=== PATIENT | female | born 1950 | race Caucasian/White ===

== ENCOUNTER 2024-02-22 22:01 | Inpatient (IN) | payer OTHER ==
[2024-02-22] MEDS ORDERED: ACETAMINOPHEN INJECTION 100 ML ONE (22:36)
[2024-02-22] MEDS ORDERED: ONDANSETRON 4 MG/2 ML VIAL ONE (22:36)
[2024-02-22] MEDS ORDERED: ALBUTEROL SO4 2.5/IPRATROPIUM 0.5 INH SOL 3 ML VIAL.NEB. NEB ONE (22:36)
[2024-02-22] MEDS: LACTATED RINGERS SOLUTION 1000 ML INFUS.BAG IV ONE (22:52)
[2024-02-22] MEDS: ACETAMINOPHEN 1000 MG/100 ML BAG IVPB ONE (22:52)
[2024-02-22] MEDS: ONDANSETRON 4 MG/2 ML VIAL IVPUSH ONE (22:52)
[2024-02-22] MEDS: ALBUTEROL SO4 2.5/IPRATROPIUM 0.5 INH SOL 3 ML VIAL.NEB. NEB ONE (22:52)
[2024-02-22 22:54] LABS: HEMATOCRIT 37.7 % (32.4-45.2); HEMOGLOBIN 12.7 GM/dL (10.7-15.3); MCH 31.3 pg (25.7-33.7); MCHC 33.7 g/dl (32.0-36.0); MEAN CELL VOLUME 92.8 fl (80-96); MEAN PLT VOLUME 7.1 fl (7.5-11.1); PLATELET COUNT 253 10^3/uL (134-434); RBC 4.07 M/mm3 (3.60-5.2); RDW 13.3 % (11.6-15.6); WHITE BLOOD COUNT 20.6 K/mm3 (4.0-10.0)
[2024-02-22 23:13] LABS: POTASSIUM 3.7 mmol/L (3.5-5.1)
[2024-02-22 23:15] LABS: CALCIUM 8.9 mg/dL (8.5-10.1)
[2024-02-22 23:16] LABS: ALBUMIN 3.4 g/dl (3.4-5.0); BLOOD UREA NITROGEN 14.7 mg/dL (7-18); MAGNESIUM 2.1 mg/dL (1.8-2.4)
[2024-02-22 23:19] LABS: CREATININE 0.7 mg/dL (0.55-1.3)
[2024-02-22 23:20] LABS: BILIRUBIN,TOTAL 0.6 mg/dL (0.2-1)
[2024-02-22 23:21] LABS: TOT PROT 6.8 g/dl (6.4-8.2)
[2024-02-22 23:40] LABS: ANISOCYTOSIS 0; MACROCYTOSIS 0
[2024-02-23] MEDS: SODIUM CHLORIDE 500 ML IV STA (03:31)
[2024-02-23] MEDS: methylPREDNISolone NA SUCC 40 MG/1 ML VIAL IVPUSH SCH ×2 (03:34→10:02)
[2024-02-23 06:23] LABS: URINE APPEARANCE CLEAR
[2024-02-23 06:27] VITALS: BMI 19.1
[2024-02-23 06:45] LABS: PH,URINE 5.5 (5.0-8.0); URINE BILIRUBIN NEGATIVE (NEGATIVE); URINE COLOR YELLOW; URINE GLUCOSE (UA) 1+ (NEGATIVE); URINE KETONE 1+ (NEGATIVE); URINE LEUK ESTERASE 1+ (NEGATIVE); URINE NITRITE POSITIVE (NEGATIVE); URINE PROTEIN TRACE (NEGATIVE); URINE UROBILINOGEN 0.2 mg/dL (0.2-1.0)
[2024-02-23] MEDS: ALBUTEROL SO4 2.5/IPRATROPIUM 0.5 INH SOL 3 ML VIAL.NEB. NEB SCH (07:20)
[2024-02-23 08:41] LABS: EPI CELLS 13 /uL (0-25.1); HYALINE CASTS 0 /uL (0-3.1); URINE BACTERIA 28718 /uL (0-1359); URINE RBC 18 /uL (0-23.9); URINE WBC 47 /uL (0-25.8)
[2024-02-23 09:52] LABS: HEMATOCRIT 35.4 % (32.4-45.2); HEMOGLOBIN 11.9 GM/dL (10.7-15.3); MCH 31.7 pg (25.7-33.7); MCHC 33.5 g/dl (32.0-36.0); MEAN CELL VOLUME 94.5 fl (80-96); MEAN PLT VOLUME 7.5 fl (7.5-11.1); PLATELET COUNT 223 10^3/uL (134-434); RBC 3.75 M/mm3 (3.60-5.2); RDW 13.2 % (11.6-15.6); WHITE BLOOD COUNT 12.6 K/mm3 (4.0-10.0)
[2024-02-23] MEDS: ENOXAPARIN NA (PORCINE) 40 MG/0.4 ML DISP.SYRIN SQ SCH (10:01)
[2024-02-23 10:02] LABS: CALCIUM 8.6 mg/dL (8.5-10.1)
[2024-02-23 10:03] LABS: BLOOD UREA NITROGEN 11.1 mg/dL (7-18); MAGNESIUM 2.1 mg/dL (1.8-2.4)
[2024-02-23 10:05] LABS: CREATININE 0.7 mg/dL (0.55-1.3)
[2024-02-23 10:06] LABS: PHOSPHOROUS 1.8 mg/dL (2.5-4.9)
[2024-02-23 10:07] LABS: BILIRUBIN,TOTAL 0.4 mg/dL (0.2-1); TOT PROT 6.2 g/dl (6.4-8.2)
[2024-02-23 10:56] LABS: ANISOCYTOSIS 0; HELMET CELLS 0; HOWELL-JOLLY BODIES 0; MACROCYTOSIS 0; OVALOCYTE 0; ROULEAU 0; SICKELED CELLS 0; TARGET CELLS 0; TEAR DROP CELLS 0; TOXIC GRANULATION 0
[2024-02-23] MEDS: MONTELUKAST NA 10 MG TABLET PO SCH (21:13)
[2024-02-23] MEDS: ZOLPIDEM TARTRATE 5 MG TABLET PO SCH (21:13)
[2024-02-24] MEDS: BENZOCAINE/MENTH/CETYLPYRD CL 1 EACH LOZENGE MM PRN (01:55)
[2024-02-24 08:56] LABS: BASO % 0.1 % (0-2.0); HEMATOCRIT 35.8 % (32.4-45.2); LYMPH % 10.5 % (8-40); MCH 31.8 pg (25.7-33.7); MCHC 33.6 g/dl (32.0-36.0); MEAN CELL VOLUME 94.8 fl (80-96); MEAN PLT VOLUME 7.9 fl (7.5-11.1); MONO % 6.7 % (3.8-10.2); NEUT % 82.7 % (42.8-82.8); PLATELET COUNT 282 10^3/uL (134-434); RBC 3.78 M/mm3 (3.60-5.2); WHITE BLOOD COUNT 12.1 K/mm3 (4.0-10.0)
[2024-02-24 09:00] LABS: POTASSIUM 4.5 mmol/L (3.5-5.1)
[2024-02-24 09:03] LABS: ALBUMIN 3.2 g/dl (3.4-5.0); CALCIUM 9.3 mg/dL (8.5-10.1); MAGNESIUM 2.4 mg/dL (1.8-2.4)
[2024-02-24 09:06] LABS: CREATININE 0.7 mg/dL (0.55-1.3)
[2024-02-24 09:07] LABS: PHOSPHOROUS 2.6 mg/dL (2.5-4.9)
[2024-02-24 09:08] LABS: BILIRUBIN,TOTAL 0.2 mg/dL (0.2-1); TOT PROT 6.8 g/dl (6.4-8.2)
[2024-02-24] MEDS ORDERED: MAG HYDROX/AL HYDROX/SIMETH 30 ML UNIT-DOSE CUP PO PRN (12:22)
[2024-02-24] MEDS: PANTOPRAZOLE 40 MG TABLET PO SCH (12:46)
[2024-02-25] MEDS: ZOLPIDEM TARTRATE 5 MG TABLET PO PRN (02:07)
[2024-02-25] MEDS: MELATONIN 5 MG TABLETS PO ONE (04:22)
[2024-02-25 09:49] LABS: BASO % 0.1 % (0-2.0); HEMATOCRIT 35.6 % (32.4-45.2); LYMPH % 10.6 % (8-40); MCH 31.8 pg (25.7-33.7); MCHC 33.6 g/dl (32.0-36.0); MEAN CELL VOLUME 94.6 fl (80-96); MEAN PLT VOLUME 7.9 fl (7.5-11.1); MONO % 11.5 % (3.8-10.2); NEUT % 77.8 % (42.8-82.8); PLATELET COUNT 292 10^3/uL (134-434); RBC 3.77 M/mm3 (3.60-5.2); RDW 13.2 % (11.6-15.6); WHITE BLOOD COUNT 8.9 K/mm3 (4.0-10.0)
[2024-02-25 10:14] LABS: POTASSIUM 3.9 mmol/L (3.5-5.1)
[2024-02-25 10:16] LABS: ALBUMIN 3.3 g/dl (3.4-5.0); BLOOD UREA NITROGEN 13.1 mg/dL (7-18); CALCIUM 9.2 mg/dL (8.5-10.1)
[2024-02-25 10:20] LABS: CREATININE 0.7 mg/dL (0.55-1.3)
[2024-02-25 10:21] LABS: BILIRUBIN,TOTAL 0.3 mg/dL (0.2-1); TOT PROT 6.5 g/dl (6.4-8.2)
[2024-02-26 10:02] VITALS: RESP 18
[2024-02-26 15:46] LABS: INR 1.15 (0.83-1.09); PROTHROMBIN TIME (PATIENT) 12.9 SEC (9.7-13.0)
[2024-02-26 15:52] LABS: POTASSIUM 3.6 mmol/L (3.5-5.1)
[2024-02-26 15:56] LABS: BLOOD UREA NITROGEN 11.8 mg/dL (7-18)
[2024-02-26 16:00] LABS: BILIRUBIN,TOTAL 0.2 mg/dL (0.2-1); CREATININE 0.8 mg/dL (0.55-1.3)
[2024-02-26 16:01] LABS: TOT PROT 6.2 g/dl (6.4-8.2)
[2024-02-26 16:15] LABS: BASO % 0.1 % (0-2.0); EOS % 0.2 % (0-4.5); HEMATOCRIT 35.8 % (32.4-45.2); LYMPH % 25.9 % (8-40); MCH 31.5 pg (25.7-33.7); MCHC 33.5 g/dl (32.0-36.0); MEAN PLT VOLUME 7.8 fl (7.5-11.1); MONO % 16.2 % (3.8-10.2); NEUT % 57.6 % (42.8-82.8); PLATELET COUNT 351 10^3/uL (134-434); RBC 3.81 M/mm3 (3.60-5.2); RDW 13.4 % (11.6-15.6)
[2024-02-27] MEDS: methylPREDNISolone NA SUCC 40 MG/1 ML VIAL IVPUSH ONE (00:19)
[2024-02-27] MEDS: predniSONE 20 MG TABLET (UD) PO SCH (09:26)
[2024-02-27] MEDS ORDERED: methylPREDNISolone NA SUCC 40 MG/1 ML VIAL IVPUSH SCH (10:00)
[2024-02-27 10:40] LABS: INR 1.04 (0.83-1.09)
[2024-02-27 10:44] LABS: POTASSIUM 4.3 mmol/L (3.5-5.1)
[2024-02-27 10:46] LABS: BASO % 0.1 % (0-2.0); HEMATOCRIT 35.5 % (32.4-45.2); HEMOGLOBIN 12.2 GM/dL (10.7-15.3); LYMPH % 11.4 % (8-40); MCH 32.1 pg (25.7-33.7); MCHC 34.3 g/dl (32.0-36.0); MEAN CELL VOLUME 93.8 fl (80-96); MEAN PLT VOLUME 7.7 fl (7.5-11.1); MONO % 9.6 % (3.8-10.2); NEUT % 78.9 % (42.8-82.8); PLATELET COUNT 346 10^3/uL (134-434); RBC 3.78 M/mm3 (3.60-5.2); RDW 13.5 % (11.6-15.6); WHITE BLOOD COUNT 11.6 K/mm3 (4.0-10.0)
[2024-02-27 10:48] LABS: ALBUMIN 3.2 g/dl (3.4-5.0); BLOOD UREA NITROGEN 11.2 mg/dL (7-18); CALCIUM 9.2 mg/dL (8.5-10.1); MAGNESIUM 2.2 mg/dL (1.8-2.4)
[2024-02-27 10:52] LABS: CREATININE 0.7 mg/dL (0.55-1.3)
[2024-02-27 10:53] LABS: BILIRUBIN,TOTAL 0.4 mg/dL (0.2-1); PHOSPHOROUS 3.9 mg/dL (2.5-4.9); TOT PROT 6.2 g/dl (6.4-8.2)
[2024-02-27] MEDS: ALBUTEROL SO4 HFA INHALER IH SCH (13:46)
[2024-02-27 14:08] VITALS: BP 113/67; PULSE 117; TEMP 98.1
[2024-02-28 18:06] LABS: GLIADIN ANTIBODY IGA 2 units (0-19); GLIADIN ANTIBODY IGG 1 units (0-19); TRANSGLUTAMINASE IGG < 2 U/mL (0-5)
[2024-02-29 07:09] LABS: ALPHA-1-ANTITRYPSIN 198 mg/dL (101-187)
== END 2024-02-27 16:50 | disposition home or self-care (01) | DRG 871 ==
LOC: JER 22:01 → JERBED 02-23 00:45 → J5S 02-23 02:57
PROVIDERS: ADMIT Student in an Organized Health Care Education/Training Program; ATTEND Internal Medicine
DX: A41.9 Sepsis, unspecified organism (principal); J18.9 Pneumonia, unspecified organism; J45.901 Unspecified asthma with (acute) exacerbation; R79.89 Other specified abnormal findings of blood chemistry; R74.01 Elevation of levels of liver transaminase levels; B97.89 Other viral agents as the cause of diseases classified elsewhere; B97.10 Unspecified enterovirus as the cause of diseases classified elsewhere
CPT/HCPCS: 0241U-QW; 36415; 71045-TC-FY; 71250-TC; 74178-TC; 74181-TC; 76705-TC; 80053; 80307; 81003; 82103; 82378; 82550; 82784; 82977; 83516; 83605; 83735; 84100; 85025; 85610; 86038; 86301; 86304; 86704; 86705; 86707; 86708; 86803; 87040; 87081; 87086; 87340; 87350; 87517; 87522; 87633; 87899; 93005; 93010; 94010; 94640; 97116-GP; 97161-GP; 99285-25; J0131; Q9967